=== PATIENT | male | born 1995 | race Caucasian/White ===

== ENCOUNTER 2017-01-10 23:43 | Emergency (ER) | payer OTHER ==
[~2017-01-10] VITALS: Ht 167.6 cm; Wt 65.6 kg
[2017-01-11] MEDS ORDERED: PEN-VEE K,VEET500 MG PO (00:17)
[2017-01-11] MEDS ORDERED: MOTRIN800 MG PO (00:17)
[2017-01-11 00:36] VITALS: BP 124/83
== END 2017-01-11 00:37 | disposition home or self-care (01) ==
LOC: EME 23:43 → EXP 23:43
DX: K08.89 Other specified disorders of teeth and supporting structures (principal)
CPT/HCPCS: 99281; 99284